=== PATIENT | male | born 1950 | race Caucasian/White ===

== ENCOUNTER → 2021-09-17 06:32 | Outpatient (CLI) | payer MEDICARE, OTHER, SELFPAY ==
--- NOTE | 2021-09-17 | DI.MRI.S_ITS ---
PROCEDURE: MR HEAD/BRAIN WO/W CON INDICATIONS: Diplopia TECHNIQUE: Noncontrast axial T1 spin echo, axial T2 fast spin echo, sagittal and axial FLAIR, coronal T2 fast spin echo, axial gradient echo, axial diffusion and ADC through the brain. After the administration of contrast, axial and coronal and sagittal T1 spin echo with fat saturation through the brain. COMPARISON: None. FINDINGS: Image quality: Excellent. CSF spaces: Basal cisterns are patent. No extra-axial fluid collections. Ventricles are normal in size and shape. Brain: No midline shift. No intracranial bleeds or masses. No abnormal intracranial enhancement. There is cerebral volume loss for age. There is periventricular white matter chronic small vessel ischemic change. The brainstem appears normal. Diffusion-weighted images demonstrate no acute ischemic insults. No chronic ischemic insults. Normal intravascular flow voids are present. Skull and face: Calvarial marrow is normal in signal. Orbits appear normal. Sinuses: Sinuses and mastoids appear clear. IMPRESSION: 1. Negative evaluation of the orbits. 2. Mild volume loss. Minimal small vessel ischemic disease. 3. No acute process. No recent infarct. Dictated by: Taylor Pagan M.D. on 09/17/2021 at 8:40 Approved by: Taylor Pagan M.D. on 09/17/2021 at 8:41
== END ==
PROVIDERS: Referring Provider Nurse Practitioner Family; Visit Provider Nurse Practitioner Family
DX: H53.2 Diplopia (principal); I67.82 Cerebral ischemia
CPT/HCPCS: 70553; A9579

== ENCOUNTER → 2021-10-22 09:33 | Outpatient (CLI) | payer MEDICARE, OTHER, SELFPAY ==
--- NOTE | 2021-10-22 09:38 | DI.CT.S_ITS ---
PROCEDURE: CT CHEST WO/W CON COMPARISON: None. INDICATIONS: Myasthenia gravis without (acute) exacerbation TECHNIQUE: Thin slice axial CT images of the chest were obtained before and after uncomplicated administration of IV contrast. Coronal and sagittal reformations as well as MIP images were created FINDINGS: No supraclavicular or axillary adenopathy. The thyroid gland appears normal as visualized. Chest wall and osseous structures are normal. There is a well-circumscribed, homogeneous, nonenhancing ovoid anterior mediastinal mass measuring 2.3 x 1.9 x 2.8 cm. There are few tiny peripheral calcifications. No adjacent inflammatory change. No mediastinal or hilar adenopathy. The heart size is normal. No pericardial effusion. The aorta and pulmonary arteries are normal caliber. There is mild coronary artery calcification. The esophagus is normal without hiatal hernia. The lungs are clear. No suspicious nodule or mass. No consolidation or ground-glass opacity. Central and peripheral airways are normal. No pleural effusion or pneumothorax. Upper abdomen demonstrates minor cholelithiasis. Normal gallbladder wall thickness. There is a tiny cyst in the left hepatic lobe. No other abnormalities in the visible solid organs. IMPRESSION: 1. 2.8 cm smooth, well-defined anterior mediastinal mass most consistent with a thymoma without invasive features. This is consistent with patient's history of myasthenia gravis. 2. No evidence of suspicious lung mass or parenchymal opacity. 3. Cholelithiasis. Dictated by: Kalie Acosta M.D. on 10/22/2021 at 14:16 Approved by: Kalie Acosta M.D. on 10/22/2021 at 14:25
[2021-10-22 10:42] LABS: BUN Creatinine Ratio 23.4 (6-22); Blood Urea Nitrogen 22 mg/dL (9-20); Estimated Glomerular Filt Rate > 60 mL/min (>60)
== END ==
PROVIDERS: Referring Provider Psychiatry & Neurology Neurology; Visit Provider Psychiatry & Neurology Neurology
DX: G70.00 Myasthenia gravis without (acute) exacerbation (principal); R22.2 Localized swelling, mass and lump, trunk; H53.2 Diplopia; H02.401 Unspecified ptosis of right eyelid; K80.20 Calculus of gallbladder without cholecystitis without obstruction
CPT/HCPCS: 36415; 71260; 82565; 84520; Q9967